=== PATIENT | male | born 1965 | race Caucasian/White ===

== ENCOUNTER 2024-06-22 15:11 | Emergency (ER) | payer BC ==
[2024-06-22] MEDS: SODIUM CHLORIDE 0.9% 1,000 ML IV ONE (15:12)
[2024-06-22] MEDS: ROCURONIUM 10 MG/ML (5 ML VIAL) IV STA (15:14)
[2024-06-22] MEDS: ETOMIDATE 2 MG/ML 10 ML VIAL IVP STA (15:14)
[2024-06-22] MEDS: CLEVIDIPINE BUTYRATE 25 MG in EMPTY BAG 1 BAG IV SCH ×3 (15:20→18:33)
--- NOTE | 2024-06-22 15:36 | ED ---
General Adult HPI - General Chief complaint: Trauma Stated complaint: Fall, head injury Source: EMS Mode of arrival: EMS - History of Present Illness Initial comments: Dictation was produced using [employer] dictation software. please excuse any grammatical, word or spelling errors. Chief Complaint:-58-year-old male with unknown known past medical history presents emergency department for History of Present Illness: 58-year-old male with unknown past medical history presents after fall. History present illness obtained solely from EMS. Patient was found at the bottom of steps. Is unclear if he takes anticoagulation medications. He was found unconscious and unresponsive with gross deformity to the back of his head with exposed brain matter and bleeding. Patient started to decorticate posture prior to the ER. Patient was allegedly at a house where he was found is unclear how long he was down for. Unable to obtain ROS secondary mental status - Related Data Allergies Allergy/AdvReac Type Severity Reaction Status Date / Time Unable to Assess Allergy Verified 06/22/24 15:17 Review of Systems ROS Statement: Those systems with pertinent positive or pertinent negative responses have been documented in the HPI. ROS Other: All systems not noted in ROS Statement are negative. General Exam - General Exam Comments Initial Comments: PHYSICAL EXAM: General Impression: Obtunded reaching at c-collar HEENT: Large occipital deformity with exposed brain matter and bleeding extra- ocular movements intact, pupils equal and reactive to light bilaterally, mucous membranes moist. Cardiovascular: Heart regular rate and rhythm Chest: Bilateral breath sounds with BVM Abdomen: abdomen soft, non-tender, non-distended, no organomegaly Musculoskeletal: Pulses present and equal in all extremities, no peripheral edema Motor: no focal deficits noted Neurological: Spontaneous movement of his upper extremities. He appears to be localizing to the c-collar Skin: Intact with no visualized rashes Course - Reevaluation(s) Reevaluation #1: 06/22/24 15:33 Patient was paged as a priority 1 trauma prior to arrival. bundle clerk arrived at bedside and intubated patient using RSI technique. Patient found to be hypertensive started on antihypertensive medications. Patient tolerated intubation procedure well. Postprocedure x-ray shows adequate placement of ET tube. Patient managed with Dr. Leon on-call for trauma. Case discussed with Dr. Blevins at [facility] who agreed transfer immediately without CT scanning of the brain. Patient's blood pressure improved with calcium channel lai. Medical Decision Making - Medical Decision Making Was pt. sent in by a medical professional or institution (, PA, IN FLIGHT TECHNICIAN, urgent care, hospital, or half-way...) When possible be specific @ -No Did you speak to anyone other than the patient for history (EMS, parent, family, police, friend...)? What history was obtained from this source @ -No Did you review nursing and triage notes (agree or disagree)? Why? @ -I reviewed and agree with nursing and triage notes Were old charts reviewed (outside hosp., previous admission, EMS record, old EKG, old radiological studies, urgent care reports/EKG's, half-way records)? Report findings @ -No old charts were reviewed Differential Diagnosis (chest pain, altered mental status, abdominal pain women, abdominal pain men, vaginal bleeding, musculoskeletal, weakness, fever, dyspnea, syncope, headache, dizziness, GI bleed, back pain, seizure, CVA, palpatations, mental health)? @ -Head contusion, neck sprain, fracture with intracranial bleed EKG interpreted by me (3pts min.). @ -None done X-rays interpreted by me (1pt min.). @ -Chest x-ray shows no pneumothorax with adequate ET tube placement. Pelvis x-ray shows no acute fractures CT interpreted by me (1pt min.). @ -None done U/S interpreted by me (1pt. min.). @ -FAST exam was performed found to be unremarkable What testing was considered but not performed or refused? (CT, X-rays, U/S, labs)? Why? @ -None What meds were considered but not given or refused? Why? @ -None Was smoking cessation discussed for >3mins.? @ -No Were there social determinants of health that impacted care today? How? (Homelessness, low income, unemployed, alcoholism, drug addiction, transportation, low edu. Level, literacy, decrease access to med. care, assisted, rehab)? @ -Known Was there de-escalation of care discussed even if they declined (Discuss DNR or withdrawal of care, Hospice)? DNR status @ -No What co-morbidities impacted this encounter? (DM, HTN, Smoking, COPD, CAD, Cancer, CVA, ARF, Chemo, Hep., AIDS, mental health diagnosis, sleep apnea, morbid obesity)? @ -Unknown Was patient admitted / discharged? Hospital course, mention meds given and route, prescriptions, significant lab abnormalities, going to OR and other pertinent info. @ -58-year-old male presents to the emergency department after head trauma. Vital signs shows hypertension. Patient has scalp fracture with exposed brain matter. Patient started on antihypertensive. Intubated with RSI. Patient will be transferred to [facility] Did you discuss the management of the patient with other professionals (professionals i.e. , PA, IN FLIGHT TECHNICIAN, lab, RT, psych nurse, administrator social welfare, aviation all source intelligence, teacher, emergency communications officer, case management associate)? Give summary @ -Case discussed with Dr. Blevins who is willing to accept the patient care for ER to ER transfer. Was critical care preformed (if so, how long)? @ -Yes, 33 minutes Undiagnosed new problem with uncertain prognosis? @ -No Drug Therapy requiring intensive monitoring for toxicity (Heparin, Nitro, Insulin, Cardizem)? @ -No Were any procedures done? @ -No Diagnosis/symptom? Acute, or Chronic, or Acute on Chronic? Uncomplicated (without systemic symptoms) or Complicated (systemic symptoms)? @ -Skull fracture with brain herniation Side effects of treatment? @ -No Exacerbation, Progression, or Severe Exacerbation? @ -No Poses a threat to life or bodily function? How? (Chest pain, [place], PR, pneumonia, PE, COPD, DKA, ARF, appy, cholecystitis, CVA, Diverticulitis, Homicidal, Suicidal, threat to staff... and all critical care pts) @ -yes Disposition Clinical Impression: Skull fracture Disposition: OTHER INSTITUTION NOT DEFINED Condition: Critical Referrals: None,Stated [Primary Care Provider] - 1-2 days Time of Disposition: 15:36 - Out of Hospital Transfer - Req. Specs Out of Hospital Transfer - Requested Specifics: Other Emergency Center ([facility])
--- NOTE | 2024-06-22 15:41 | XR ---
EXAMINATION TYPE: XR chest 1V portable, XR pelvis AP view DATE OF EXAM: 06/22/2024 Comparison: None Clinical History: 58-year-old male trauma after fall down flight of stairs onto concrete floor, pain Findings: Chest: ET tube satisfactory. Piecemeal imaging is performed with 2 projections provided. Mild interstitial prominence may be chronic. The cardiomediastinal silhouette, aorta, and pulmonary vasculature are wit hin normal limits. Otherwise, lung and pleural spaces are clear. Pelvis: Moderate degenerative change in both hips with joint space narrowing, marginal spurring. SI joints an d pubic symphysis appear intact. No acute fracture, subluxation, dislocation. Impression: 1. Chest: Limited portable exam. Satisfactory ET tube. There is some interstitial prominence which ma y be chronic or could reflect bronchitis/asthma. Otherwise, no definite acute process. 2. Pelvis: Moderate bilateral hip OA. No acute osseous abnormality seen. [facility], , 06/22/2024 3:39 PM
[2024-06-22 15:42] LABS: Glucose,Whole Blood 189 mg/dL (70-110)
[2024-06-22 15:50] LABS: HCT 42.4 % (39.0-53.0); HGB 13.7 gm/dL (13.0-17.5); MCHC 32.2 g/dL (31.0-37.0); MCV 96.2 fL (80.0-100.0); RBC 4.41 m/uL (4.30-5.90); RDW 12.6 % (11.5-15.5); WBC 15.3 k/uL (3.8-10.6)
[2024-06-22 15:51] LABS: Basophils # (A) 0.1 k/uL (0-0.2); Basophils % (A) 0 %; Eosinophils # (A) 0.1 k/uL (0-0.7); Eosinophils % (A) 0 %; Lymphocytes # (A) 2.3 k/uL (1.0-4.8); Lymphocytes % (A) 15 %; Mean Platelet Volume 7.8; Monocytes # (A) 0.9 k/uL (0-1.0); Monocytes % (A) 6 %; Neutrophils # (A) 11.7 k/uL (1.3-7.7); Neutrophils % (A) 77 %; Platelet Count 315 k/uL (150-450)
[2024-06-22 15:53] LABS: Amphetamine Screen,Urine Not Detected (NotDetected); Barbiturate Screen,Urine Not Detected (NotDetected); Benzodiazepines Screen,Urine Not Detected (NotDetected); Cocaine Screen,Urine Not Detected (NotDetected); Methadone Screen, Urine Not Detected (NotDetected); Opiate Screen,Urine Not Detected (NotDetected); Oxycodone Screen, Urine Not Detected (NotDetected); Phencyclidine Screen,Urine Not Detected (NotDetected); Tricyclic Antidepressant,Urine Not Detected (NotDetected); Urn Cannabinoid Scrn Not Detected (NotDetected)
[2024-06-22 15:58] LABS: ALT 18 U/L (4-49); AST 29 U/L (17-59); African American GFR (CKD) >90 (>60 ml/min/1.73 sqM); Albumin 4.2 g/dL (3.5-5.0); Alcohol <10 mg/dL; Alkaline Phosphatase 110 U/L (38-126); Anion Gap 8 mmol/L; Blood Urea Nitrogen 21 mg/dL (9-20); Calcium 8.6 mg/dL (8.4-10.2); Carbon Dioxide 30 mmol/L (22-30); Chloride 103 mmol/L (98-107); Glucose 201 mg/dL (74-99); Non-African American GFR(CKD) >90 (>60 ml/min/1.73 sqM); Potassium 4.7 mmol/L (3.5-5.1); Sodium 141 mmol/L (137-145); Total Bilirubin 0.9 mg/dL (0.2-1.3); Total Protein 6.9 g/dL (6.3-8.2)
[2024-06-22 16:12] LABS: Prothrombin Time 10.7 sec (10.0-12.5)
[2024-06-22 16:15] LABS: Partial Thromboplastin Time 19.7 sec (22.0-30.0)
--- NOTE | 2024-06-22 17:41 | P.GSCN ---
History of Present Illness Consult date: 06/22/24 History of present illness: Patient is a 58 year old male who presents as LVL 1 trauma. Patient was brought in via EMS secondary to fall down stairs. Per EMS patient was found down at the bottom of one flight of stairs. There was large amount of blood loss at the scene. Patient was transfered to [facility] for further evaluation. At time of evalaution patient is with GCS of 7. Patient was intubated for airway protection. C-collar placed. No history of blood thinner use per chart review. Review of Systems ROS unobtainable: due to endotracheal tube Medications and Allergies Allergies Allergy/AdvReac Type Severity Reaction Status Date / Time Unable to Assess Allergy Verified 06/22/24 15:17 Surgical - Exam - General Gen: Intubated HEENT: 3mm pupils, equal and reactive. No conjunctiva petichae seen. Large lacer ation and depressed skull fracture seen over left parietal area. Bleeding controlled with manual pressure. Cervical collar in place Chest: equal chest rise, no evidence of external trauma Abd: soft, non-tender, non-distended. no guarding/rebound/rigidity. FAST negative Extrem: +2 dp/pt bilaterally. Widthdrawl to pain. Back: no step offs or deformities of cervical, thoracic or lumbar spine Rectal: normal tone, no blood seen. Results - Labs 06/22/24 15:14 06/22/24 15:14 Abnormal Lab Results - Last 24 Hours (Table) 06/22/24 06/22/24 06/22/24 Range/Units 15:14 15:14 15:14 WBC 15.3 H (3.8-10.6) k/uL Neutrophils # 11.7 H (1.3-7.7) k/uL APTT 19.7 L (22.0-30.0) sec BUN 21 H (9-20) mg/dL Glucose 201 H (74-99) mg/dL POC Glucose (mg/dL) (70-110) mg/dL Plasma Lactic Acid Justin (0.7-2.0) mmol/L 06/22/24 06/22/24 Range/Units 15:14 15:40 WBC (3.8-10.6) k/uL Neutrophils # (1.3-7.7) k/uL APTT (22.0-30.0) sec BUN (9-20) mg/dL Glucose (74-99) mg/dL POC Glucose (mg/dL) 189 H (70-110) mg/dL Plasma Lactic Acid Justin 3.4 H* (0.7-2.0) mmol/L Diabetes panel 06/22/24 Range/Units 15:14 Sodium 141 (137-145) mmol/L Potassium 4.7 (3.5-5.1) mmol/L Chloride 103 (98-107) mmol/L Carbon Dioxide 30 (22-30) mmol/L BUN 21 H (9-20) mg/dL Creatinine 0.81 (0.66-1.25) mg/dL Glucose 201 H (74-99) mg/dL Calcium 8.6 (8.4-10.2) mg/dL AST 29 (17-59) U/L ALT 18 (4-49) U/L Alkaline Phosphatase 110 (38-126) U/L Total Protein 6.9 (6.3-8.2) g/dL Albumin 4.2 (3.5-5.0) g/dL Calcium panel 06/22/24 Range/Units 15:14 Calcium 8.6 (8.4-10.2) mg/dL Albumin 4.2 (3.5-5.0) g/dL Pituitary panel 06/22/24 Range/Units 15:14 Sodium 141 (137-145) mmol/L Potassium 4.7 (3.5-5.1) mmol/L Chloride 103 (98-107) mmol/L Carbon Dioxide 30 (22-30) mmol/L BUN 21 H (9-20) mg/dL Creatinine 0.81 (0.66-1.25) mg/dL Glucose 201 H (74-99) mg/dL Calcium 8.6 (8.4-10.2) mg/dL Adrenal panel 06/22/24 Range/Units 15:14 Sodium 141 (137-145) mmol/L Potassium 4.7 (3.5-5.1) mmol/L Chloride 103 (98-107) mmol/L Carbon Dioxide 30 (22-30) mmol/L BUN 21 H (9-20) mg/dL Creatinine 0.81 (0.66-1.25) mg/dL Glucose 201 H (74-99) mg/dL Calcium 8.6 (8.4-10.2) mg/dL Total Bilirubin 0.9 (0.2-1.3) mg/dL AST 29 (17-59) U/L ALT 18 (4-49) U/L Alkaline Phosphatase 110 (38-126) U/L Total Protein 6.9 (6.3-8.2) g/dL Albumin 4.2 (3.5-5.0) g/dL Assessment and Plan Assessment: Patient is a 58 year old male who is a LV1 trauma s/p fall. Plan: -Primary and secondary survey performed -Continue C-collar -CXR and pelvis XR reviewed; no acute injury seen appropriate positioning of ET tube -Continue cardene for hypertension: goal of systolic less than 150 -Tetanus and IV ancef for suspected open skull fracture -FAST negative -Plan for emergent transfer for neurosurgical evaluation and potential intervention -No acute surgical intervention Anant Jason M.D. General Surgery
== END 2024-06-22 15:56 | disposition other institution (70) ==
LOC: EC 15:11
DX: S02.91XA Unspecified fracture of skull, initial encounter for closed fracture (principal); W10.9XXA Fall (on) (from) unspecified stairs and steps, initial encounter; Y92.009 Unspecified place in unspecified non-institutional (private) residence as the place of occurrence of the external cause
CPT/HCPCS: 36415; 94002; 93005; 80053; 83605; 84484; 85025; 85610; 85730; 80306; 80320; 72170; 71045; 99291; 31500; 96365; J2704; C9248